=== PATIENT | male | born 1990 | race Caucasian/White ===

== ENCOUNTER 2018-11-29 10:29 | Emergency (ER) | payer OTHER ==
[2018-11-29 10:36] VITALS: RESP 18
--- NOTE | 2018-11-29 11:06 | ED ---
General Adult HPI - General Chief complaint: Upper Respiratory Infection Stated complaint: chest consgestion Source: patient Mode of arrival: ambulatory Limitations: no limitations - Related Data Home Medications Medication Instructions Recorded Confirmed Multivitamins, Thera [Multivitamin 1 tab PO DAILY 11/29/18 11/29/18 (formulary)] Previous Rx's Medication Instructions Recorded Oseltamivir [Tamiflu] 75 mg PO Q12HR 5 Days #10 cap 11/29/18 Allergies Allergy/AdvReac Type Severity Reaction Status Date / Time No Known Allergies Allergy Verified 11/29/18 10:43 Review of Systems ROS Statement: Those systems with pertinent positive or pertinent negative responses have been documented in the HPI. ROS Other: All systems not noted in ROS Statement are negative. Past Medical History Past Medical History: No Reported History History of Any Multi-Drug Resistant Organisms: None Reported Past Surgical History: Tonsillectomy Past Psychological History: No Psychological Hx Reported Smoking Status: Former smoker Past Alcohol Use History: Occasional Past Drug Use History: Marijuana General Exam Limitations: no limitations Course Vital Signs 11/29/18 10:32 Temperature 98.3 F Pulse Rate 94 Respiratory 18 Rate Blood Pressure 140/84 O2 Sat by Pulse 99 Oximetry Medical Decision Making - Medical Decision Making Dictation was produced using [employer] dictation software. please excuse any grammatical, word or spelling errors. Chief Complaint:-year-old male with no significant past medical history presents with cold History of Present Illness: 20-year-old male. He presents today with chief complaint of cold. Patient's been having symptoms for approximately 3 days. He is concerned that he has an infection that can affect his children. He has a [id number] at home. Patient states he has rhinorrhea, nasal congestion, cough. Denies any constitutional symptoms. The ROS documented in this emergency department record has been reviewed and confirmed by me. Those systems with pertinent positive or negative responses have been documented in the HPI. All other systems are other negative and/or noncontributory. PHYSICAL EXAM: General Impression: Alert and oriented x3, not in acute distress HEENT: Normocephalic atraumatic, extra-ocular movements intact, pupils equal and reactive to light bilaterally, mucous membranes moist. Cardiovascular: Heart regular rate and rhythm, S1&S2 audible, no murmurs, rubs or gallops Chest: Lungs clear to auscultation bilaterally, no rhonchi, no wheeze, no rales Abdomen: Bowel sounds present, abdomen soft, non-tender, non-distended, no organomegaly Musculoskeletal: Pulses present and equal in all extremities, no peripheral edema Motor: Power 5/5 bilaterally, no focal deficits noted Neurological: CN II-XII grossly intact, no focal motor or sensory deficits noted Skin: Intact with no visualized rashes Psych: Normal affect and mood ED course: 28-year-old male presents with a viral URI upon arrival are within acceptable limits. Patient is here today because he is worried about having flu that may affect his children at home. No concerns for bacterial illness at this time. Because of the positive. Patient given Tamiflu. Advised follow-up with PCP upon discharge. She understandable and agreeable to plan. - Lab Data Lab Results 11/29/18 Range/Units 11:00 Influenza Type A RNA Not Detected (Not Detectd) Influenza Type B (PCR) Detected H (Not Detectd) Disposition Clinical Impression: Influenza Disposition: HOME SELF-CARE Condition: Good Instructions: Influenza (ED) Prescriptions: Oseltamivir [Tamiflu] 75 mg PO Q12HR 5 Days #10 cap Is patient prescribed a controlled substance at d/c from ED?: No Referrals: Tucker Isidor MD [Primary Care Provider] - 1-2 days Time of Disposition: 12:20
[2018-11-29 12:48] VITALS: BP 133/85; PULSE 89; TEMP 99.7
== END 2018-11-29 12:48 | disposition home or self-care (01) ==
LOC: EC 10:29
DX: J11.1 Influenza due to unidentified influenza virus with other respiratory manifestations (principal); Z87.891 Personal history of nicotine dependence; Z90.89 Acquired absence of other organs
CPT/HCPCS: 87502; 99283

== ENCOUNTER 2019-06-29 23:33 | Emergency (ER) | payer OTHER ==
[2019-06-29 23:55] VITALS: BP 159/91; RESP 20; TEMP 98.8
[2019-06-30 00:26] LABS: Appearance,Urine Clear (Clear); Bilirubin,Urine Negative (Negative); Blood,Urine Negative (Negative); Color,Urine Yellow; Glucose,Urine (UA) Negative (Negative); Ketones,Urine Negative (Negative); Leukocyte Esterase,Urine Negative (Negative); Nitrite,Urine Negative (Negative); PH, Urine 5.5 (5.0-8.0); Protein,Urine Trace (Negative); Specific Gravity,Urine 1.027 (1.001-1.035); Urobilinogen,Urine <2.0 mg/dL (<2.0)
--- NOTE | 2019-06-30 01:46 | US ---
EXAM: US Scrotum CLINICAL HISTORY: US Reason: Pain, R testicle TECHNIQUE: Real-time ultrasound of the scrotum with color Doppler and image documentation. COMPARISON: No relevant prior studies available. FINDINGS: Right Testicle: 5.1 x 2.6 x 3.4 cm Left Testicle: 5.0 x 2.5 x 3.5 cm Blood flow seen to bilateral testicles. There is hyperemia to the right epididymis suspicious for right epididymitis. Remainder of exam unremarkable. IMPRESSION: Findings suspicious for right epididymitis.
[2019-06-30 02:48] VITALS: PULSE 89
--- NOTE | 2019-06-30 02:49 | ED ---
Male Urogenital HPI - General Chief complaint: Urogenital Stated complaint: Male Time Seen by Provider: 06/30/19 00:03 Source: patient Mode of arrival: ambulatory Limitations: no limitations - History of Present Illness Initial comments: This patient is 28-year-old man who presents to be evaluated for pain and a little bit of swelling to his right testicle. The patient states that he had vasectomy performed as an outpatient approximately 2 weeks ago. He states that this was performed through a urology clinic closer to the [facility]. He had been doi ng fairly well until this morning when he noted that he was started to have pain at the right testicle. He is not having any systemic symptoms, including no fever or chills. He has not noticed erythema or warmth. There is just a mild amount of swelling. No urethral discharge. No new sexual partners MD Complaint: testicle pain Onset/Timin -: days(s) Location: right testicle Radiation: none Severity: moderate Quality: aching Consistency: constant Improves with: none Worsens with: none Reports: denies other symptoms - Related Data Home Medications Medication Instructions Recorded Confirmed Multivitamins, Thera [Multivitamin 1 tab PO DAILY 11/29/18 11/29/18 (formulary)] Previous Rx's Medication Instructions Recorded Oseltamivir [Tamiflu] 75 mg PO Q12HR 5 Days #10 cap 11/29/18 Doxycycline [Vibramycin] 100 mg PO BID 3 Days #28 capsule 06/30/19 Allergies Allergy/AdvReac Type Severity Reaction Status Date / Time No Known Allergies Allergy Verified 06/29/19 23:55 Review of Systems ROS Statement: Those systems with pertinent positive or pertinent negative responses have been documented in the HPI. ROS Other: All systems not noted in ROS Statement are negative. Constitutional: Denies: fever, chills Respiratory: Denies: cough, dyspnea Cardiovascular: Denies: chest pain, palpitations Gastrointestinal: Denies: abdominal pain, nausea, vomiting, diarrhea, constipation Genitourinary: Reports: as per HPI, testicular pain, testicular mass. Denies: dysuria, hematuria, discharge Musculoskeletal: Denies: back pain Skin: Denies: rash, change in color Past Medical History Past Medical History: No Reported History History of Any Multi-Drug Resistant Organisms: None Reported Past Surgical History: Tonsillectomy Additional Past Surgical History / Comment(s): vasectomy Past Psychological History: No Psychological Hx Reported Smoking Status: Former smoker Past Alcohol Use History: Occasional Past Drug Use History: Marijuana General Exam Limitations: no limitations General appearance: alert, in no apparent distress Respiratory exam: Present: normal lung sounds bilaterally. Absent: respiratory distress, wheezes, rales, rhonchi, stridor Cardiovascular Exam: Present: regular rate, normal rhythm, normal heart sounds. Absent: systolic murmur, diastolic murmur, rubs, gallop GI/Abdominal exam: Present: soft. Absent: distended, tenderness, guarding, rebound, mass exam: Present: normal inspection, testicular tenderness, vertical testicular lie, other (The patient's surgical incisions are healing well without any erythema, warmth, or drainage.). Absent: urethral discharge, scrotal swelling, circumcision Extremities exam: Present: normal inspection, normal capillary refill. Absent: pedal edema, calf tenderness Back exam: Present: normal inspection. Absent: CVA tenderness (R), CVA tenderness (L) Skin exam: Present: warm, dry, intact, normal color. Absent: rash Course Vital Signs 06/29/19 06/30/19 23:51 02:47 Temperature 98.8 F Pulse Rate 109 H 89 Respiratory 20 Rate Blood Pressure 159/91 O2 Sat by Pulse 97 99 Oximetry Medical Decision Making - Medical Decision Making Patient is 28-year-old man with right sided epididymal tenderness and swelling following vasectomy. The patient had ultrasound which confirms that the swelling is located there. The patient will follow with his urologist. Discussed appropriate follow-up as well as return parameters. - Lab Data Lab Results 06/30/19 Range/Units 00:19 Urine Color Yellow Urine Appearance Clear (Clear) Urine pH 5.5 (5.0-8.0) Ur Specific [place] 1.027 (1.001-1.035) Urine Protein Trace H (Negative) Urine Glucose (UA) Negative (Negative) Urine Ketones Negative (Negative) Urine Blood Negative (Negative) Urine Nitrite Negative (Negative) Urine Bilirubin Negative (Negative) Urine Urobilinogen <2.0 (<2.0) mg/dL Ur Leukocyte Esterase Negative (Negative) Disposition Clinical Impression: Evaluation of postoperative testicular pain within 30 days of vasectomy Disposition: HOME SELF-CARE Condition: Good Instructions (If sedation given, give patient instructions): Epididymitis (ED), Scrotal Pain (ED) Prescriptions: Doxycycline [Vibramycin] 100 mg PO BID 3 Days #28 capsule Is patient prescribed a controlled substance at d/c from ED?: No Referrals: Tucker Isidro MD [Primary Care Provider] - 1-2 days Isac Louis MD [STAFF PHYSICIAN] - 1-2 days
== END 2019-06-30 03:03 | disposition home or self-care (01) ==
LOC: EC 23:33
DX: G89.18 Other acute postprocedural pain (principal); N50.811 Right testicular pain; N50.89 Other specified disorders of the male genital organs; Z98.52 Vasectomy status; Z87.891 Personal history of nicotine dependence
CPT/HCPCS: 76870; 81003; 93975; 99284

== ENCOUNTER 2021-06-07 22:15 | Emergency (ER) | payer OTHER ==
[2021-06-07 22:19] VITALS: BP 129/75; PULSE 69; RESP 19; TEMP 98.8
--- NOTE | 2021-06-07 23:02 | XR ---
EXAMINATION TYPE: XR finger RT DATE OF EXAM: 06/07/2021 COMPARISON: NONE HISTORY: Fall. Pain. TECHNIQUE: 3 views FINDINGS: There is a 4 mm chip fracture of the posterior base of the distal phalanx of the ring finge r right hand. There is no dislocation. There is separation 1 to 2 mm. IMPRESSION: Small intra-articular chip fracture posterior base of the distal phalanx of the ring fing er.
--- NOTE | 2021-06-07 23:05 | XR ---
EXAMINATION TYPE: XR ribs RT DATE OF EXAM: 06/07/2021 COMPARISON: NONE HISTORY: Pain TECHNIQUE: 4 views FINDINGS: There is no pleural effusion or pneumothorax. The right ribs appear intact. I see no rib fr acture. IMPRESSION: Negative right rib exam.
--- NOTE | 2021-06-07 23:24 | ED ---
Fall HPI - General Chief Complaint: Fall Stated Complaint: Fall Time Seen by Provider: 06/07/21 22:25 Source: patient, RN notes reviewed Mode of arrival: ambulatory - History of Present Illness Initial Comments: Patient is a 30-year-old male that presents to emergency department complaining of right ring finger and right-sided rib pain. He noted that several days ago he fell off a trailer landing on his right side. He noted the pain was approximate 5 out of 10 constant with no relief. He noted that he did not want any pain medication at this time as it was tolerable. He noted he came emergently get evaluated for any possible fractures. He denied any shortness of breath headache nausea vomiting diarrhea constipation fever fatigue chills. - Related Data Home Medications Medication Instructions Recorded Confirmed No Known Home Medications 06/07/21 06/07/21 Allergies Allergy/AdvReac Type Severity Reaction Status Date / Time No Known Allergies Allergy Verified 06/07/21 22:51 Review of Systems ROS Statement: Those systems with pertinent positive or pertinent negative responses have been documented in the HPI. ROS Other: All systems not noted in ROS Statement are negative. Past Medical History Past Medical History: No Reported History History of Any Multi-Drug Resistant Organisms: None Reported Past Surgical History: Tonsillectomy Additional Past Surgical History / Comment(s): vasectomy Past Psychological History: No Psychological Hx Reported Smoking Status: Never smoker Past Alcohol Use History: Occasional Past Drug Use History: Marijuana General Exam General appearance: alert, in no apparent distress, obese Head exam: Present: atraumatic, normocephalic, normal inspection Eye exam: Present: normal appearance, PERRL, EOMI. Absent: scleral icterus, conjunctival injection, periorbital swelling Neck exam: Present: normal inspection Respiratory exam: Present: normal lung sounds bilaterally, other (Right-sided rib pain point tenderness just inferior the nipple.). Absent: respiratory distress, wheezes, rales, rhonchi, stridor Cardiovascular Exam: Present: regular rate, normal rhythm, normal heart sounds. Absent: systolic murmur, diastolic murmur, rubs, gallop, clicks Right Hand Wrist exam: Present: full ROM, swelling (Right ring finger). Absent: tenderness, abrasion, laceration, ecchymosis, deformity Neurological exam: Present: alert, oriented X3 Psychiatric exam: Present: normal affect, normal mood Skin exam: Present: warm, dry, intact, normal color. Absent: rash Course Vital Signs 06/07/21 22:16 Temperature 98.8 F Pulse Rate 69 Respiratory 19 Rate Blood Pressure 129/75 O2 Sat by Pulse 99 Oximetry Procedures - Orthopedic Splinting/Casting Injury #1 Side: right Upper Extremity Injury Location: finger (Ring) Upper Extremity Immobilizer: aluminum form splint Medical Decision Making - Medical Decision Making 30-year-old male complaining of right ring finger and right-sided rib pain after falling off for 2 days ago. X-ray of the right ring finger and right-sided ribs ordered. X-ray imaging shows a intra-articular chip fracture of the right ring finger at the base of the distal phalanx. Patient declined pain medication at this time as he was tolerable. Case discussed with Dr. Nichole, patient can discharge home with follow-up to orthopedist. - Radiology Data Radiology results: report reviewed, image reviewed X-ray of the right rib: Negative right rib exam X-ray of the right ring finger: Small intra-articular chip fracture posterior base of the distal phalanx of the ring finger Disposition Clinical Impression: Fall, Rib contusion, Open fracture of distal phalanx of digit of right hand Disposition: HOME SELF-CARE Condition: Stable Instructions (If sedation given, give patient instructions): Hand Fracture (ED) Additional Instructions: Please return to the Emergency Department if symptoms worsen or any other concerns. Follow-up with orthopedist in the next week. Follow-up primary care as needed. Take Tylenol Motrin as needed for pain. Is patient prescribed a controlled substance at d/c from ED?: No Referrals: Tucker Isidro MD [Primary Care Provider] - 1-2 days Hayden Cary PAC [PHYSICIAN [employer]] - 1-2 days Time of Disposition: 23:37
== END 2021-06-07 23:46 | disposition home or self-care (01) ==
LOC: EC 22:15
DX: S62.634A Displaced fracture of distal phalanx of right ring finger, initial encounter for closed fracture (principal); S20.211A Contusion of right front wall of thorax, initial encounter; F12.90 Cannabis use, unspecified, uncomplicated; W17.89XA Other fall from one level to another, initial encounter
CPT/HCPCS: 99284

== ENCOUNTER → 2021-07-06 | Outpatient (CLI) | payer OTHER ==
[2021-07-06 23:18] LABS: Basophils # (A) 0.01 X 10*3/uL (0.00-0.10); Basophils % (A) 0.2 %; Eosinophils # (A) 0.04 X 10*3/uL (0.04-0.35); Eosinophils % (A) 0.8 %; HCT 42.3 % (39.6-50.0); HGB 14.1 g/dL (13.0-17.0); Lymphocytes # (A) 2.02 X 10*3/uL (0.90-5.00); Lymphocytes % (A) 40.3 %; MCHC 33.3 g/dL (32.0-37.0); MCV 84.1 fL (80.0-97.0); Mean Platelet Volume 10.3 fL (9.5-12.2); Monocytes # (A) 0.47 X 10*3/uL (0.20-1.00); Monocytes % (A) 9.4 %; Neutrophils # (A) 2.45 X 10*3/uL (1.80-7.70); Neutrophils % (A) 48.9 %; Platelet Count 303 X 10*3/uL (140-440); RBC 5.03 X 10*6/uL (4.40-5.60); RDW 12.9 % (11.5-14.5); WBC 5.01 X 10*3/uL (4.50-10.00)
[2021-07-07 01:50] LABS: Erythrocyte Sedimentation Rate 4 mm/Hr (0-15)
[2021-07-07 07:53] LABS: ALT 22 U/L (10-49); AST 22 U/L (14-35); African American GFR (CKD) 103.9 (60.0-200.0); Albumin/Globulin Ratio 2.09 (1.60-3.17); Alkaline Phosphatase 70 U/L (41-126); BUN/Creat Ratio 11.82 Ratio (12.00-20.00); C Reactive Protein <0.4 mg/dL (0.0-0.8); Calcium 9.3 mg/dL (8.7-10.3); Carbon Dioxide 25.3 mmol/L (21.6-31.8); Chloride 104 mmol/L (96-109); Chol/HDL Ratio 3.69; Cholesterol 155 mg/dL (0-200); Creatine Kinase 437 U/L (35-257); Globulin 2.3 g/dL (1.6-3.3); Glucose 97 mg/dL (70-110); LDL Cholesterol,Calculated 98.2 mg/dL (0.0-131.0); Non-African American GFR(CKD) 89.6 (60.0-200.0); Phosphorus 3.4 mg/dL (2.4-5.1); Sodium 139 mmol/L (135-145); Total Bilirubin 0.7 mg/dL (0.3-1.2); Total Protein 7.1 g/dL (6.2-8.2)
== END | disposition home or self-care (01) ==
LOC: LABWHC1 15:52
PROVIDERS: ATTEND Internal Medicine
DX: D64.9 Anemia, unspecified (principal); I10 Essential (primary) hypertension; E87.8 Other disorders of electrolyte and fluid balance, not elsewhere classified; E78.5 Hyperlipidemia, unspecified; E03.9 Hypothyroidism, unspecified; E66.9 Obesity, unspecified; E55.9 Vitamin D deficiency, unspecified
CPT/HCPCS: 36415; 80053; 80061; 82306; 82550; 83735; 84100; 84439; 84443; 85025; 85652; 86140